=== PATIENT | female | born 1995 | race Caucasian/White ===

== ENCOUNTER 2018-11-02 19:46 | Inpatient (IN) | payer OTHER ==
[~2018-11-02] VITALS: Ht 167.6 cm; Wt 76.9 kg
[2018-11-02] MEDS ORDERED: MAGNESIUM SULF. PMX 20GM/500ML 500 ML IV SCH ×2 (20:06→20:10)
[2018-11-02] MEDS ORDERED: LACTATED RINGERS 1,000 ML IV PRN (20:06)
[2018-11-02] MEDS ORDERED: METOCLOPRAMIDE 5 MG/ML, 2ML IVPush PRN (20:30)
[2018-11-02] MEDS ORDERED: ALUMINUM/MAG/SIMETHICONE 30 ML UDC PO PRN (20:30)
[2018-11-02] MEDS ORDERED: FENTANYL PF 100 MCG/2ML IVPush PRN (20:30)
[2018-11-02] MEDS ORDERED: FENTANYL PF 100 MCG/2ML IV PRN (20:30)
[2018-11-02] MEDS ORDERED: BETAMETHASONE 6 MG/ML, 5ML IM SCH (20:30)
[2018-11-02] MEDS ORDERED: MAGNESIUM SULF. PMX 20GM/500ML 500 ML IV PRN (20:30)
[2018-11-02] MEDS ORDERED: CALCIUM GLUCONATE 4.6 MEQ/10 ML IV PRN (20:30)
[2018-11-02] MEDS ORDERED: CALCIUM CARBONATE 500 MG TAB.CHEW PO PRN (20:30)
[2018-11-02] MEDS ORDERED: SODIUM CITRATE/CITRIC ACID 30 ML UDC PO PRN (20:30)
[2018-11-02 20:57] LABS: BASOPHILS % (AUTO) 0 % (0-1); EOSINOPHILS % (AUTO) 0 % (1-7); LYMPHOCYTES # (AUTO) 0.96 x10^3/uL (1-3.4); LYMPHOCYTES % (AUTO) 8 % (22-44); MD NO; MEAN CORPUSCULAR HEMOGLOBIN 27.5 pg (27.0-34.8); MEAN CORPUSCULAR HGB CONC 32.5 g/dL (32.4-35.8); MEAN CORPUSCULAR VOLUME 84.4 fL (80-100); MEAN PLATELET VOLUME 8.3 fL (7.4-10.4); MONOCYTES # (AUTO) 0.03 x10^3/uL (0.2-0.8); MONOCYTES % (AUTO) 0 % (2-9); NEUTROPHILS # (AUTO) 10.79 x10^3/uL (1.8-6.8); NEUTROPHILS % (AUTO) 92 % (42-75); PLATELET COUNT 298 x10^3/uL (130-400); RED BLOOD COUNT 4.27 x10^6/uL (3.82-5.3); RED CELL DISTRIBUTION WIDTH 14.7 % (9.6-15.2)
[2018-11-02 21:00] VITALS: BP 121/70
[2018-11-02 21:23] LABS: ALANINE AMINOTRANSFERASE 7 U/L (12-78); ALBUMIN 2.7 g/dL (3.4-5.0); ANION GAP 9 mmol/L (5-15); CALCIUM 7.7 mg/dL (8.5-10.1); CHLORIDE 109 mmol/L (98-107)
[2018-11-02] MEDS: PENICILLIN GK 2,500,000 UNITS in DEXTROSE 5% 100 ML IVPB SCH (21:24)
[2018-11-02 21:26] LABS: ALKALINE PHOSPHATASE 113 U/L (45-117); BILIRUBIN,TOTAL 0.5 mg/dL (0.2-1.0); CREATININE 0.55 mg/dL (0.55-1.02); TOTAL PROTEIN 7.2 g/dL (6.4-8.2)
[2018-11-02] MEDS ORDERED: D5%-LACTATED RINGERS 1,000 ML IV SCH (22:01)
[2018-11-02] MEDS ORDERED: ONDANSETRON 2MG/ML, 2ML ONE (22:13)
[2018-11-02] MEDS: ONDANSETRON 2MG/ML, 2ML IVPush PRN (22:16)
[2018-11-03] MEDS: PENICILLIN GK 2,500,000 UNITS in DEXTROSE 5% 100 ML IVPB SCH ×5 (02:00→22:07)
[2018-11-03] MEDS ORDERED: MAGNESIUM SULF. PMX 20GM/500ML 500 ML IV ONE (02:02)
[2018-11-03] MEDS ORDERED: ONDANSETRON 2MG/ML, 2ML ONE ×2 (05:41→13:38)
[2018-11-03] MEDS: ONDANSETRON 2MG/ML, 2ML IVPush PRN ×2 (05:44→13:43)
[2018-11-03] MEDS ORDERED: D5%-LACTATED RINGERS 1,000 ML IV SCH (06:32)
[2018-11-03] MEDS ORDERED: OXYTOCIN 30U/ 0.9% NaCL 500ML 500 ML IV ONE (06:32)
[2018-11-03] MEDS ORDERED: LACTATED RINGERS 1,000 ML IV SCH (06:32)
[2018-11-03] MEDS ORDERED: FENTANYL/BUPIV./NS/PF 250 ML EPIDCONT SCH (06:42)
[2018-11-03] MEDS ORDERED: BETAMETHASONE 6 MG/ML, 5ML IM ONE (15:36)
[2018-11-03] MEDS ORDERED: BETAMETHASONE 6 MG/ML, 5ML IM SCH ×2 (16:30)
[2018-11-03] MEDS ORDERED: MAGNESIUM SULF. PMX 20GM/500ML 500 ML IV SCH ×2 (20:10)
[2018-11-03] MEDS ORDERED: LIDOCAINE 1%, 20ML ONE (20:12)
[2018-11-03] MEDS ORDERED: OXYTOCIN 30U/ 0.9% NaCL 500ML 500 ML ONE (20:13)
[2018-11-03] MEDS ORDERED: MISOPROSTOL 200 MCG TABLET ONE (20:13)
[2018-11-04] MEDS: PENICILLIN GK 2,500,000 UNITS in DEXTROSE 5% 100 ML IVPB SCH ×3 (02:02→10:35)
[2018-11-04] MEDS ORDERED: NEWBORN KIT ONE (04:50)
[2018-11-04] MEDS ORDERED: DOCUSATE 100 MG CAPSULE ONE (08:09)
[2018-11-04] MEDS ORDERED: PRENATAL VIT/IRON/FA 1 EACH TABLET ONE (08:09)
[2018-11-04] MEDS: PRENATAL VIT/IRON/FA 1 EACH TABLET PO SCH (08:19)
[2018-11-04] MEDS: DOCUSATE 100 MG CAPSULE PO SCH (21:00)
[2018-11-05 07:51] VITALS: BP 105/67
[2018-11-05] MEDS ORDERED: PRENATAL VIT/IRON/FA 1 EACH TABLET ONE (09:12)
[2018-11-05] MEDS ORDERED: DOCUSATE 100 MG CAPSULE ONE ×2 (09:12→21:19)
[2018-11-05] MEDS: PRENATAL VIT/IRON/FA 1 EACH TABLET PO SCH (09:21)
[2018-11-05] MEDS: DOCUSATE 100 MG CAPSULE PO SCH (09:21)
[2018-11-05] MEDS: SODIUM CHLORIDE FLUSH 10ML SYR IVF PRN ×2 (12:17→21:00)
[2018-11-05] MEDS ORDERED: DIPH,PERTUSS(ACELL),TET VAC/PF NC IM-VACC ONE (14:29)
[2018-11-06] MEDS ORDERED: DOCUSATE 100 MG CAPSULE ONE ×2 (07:30→20:52)
[2018-11-06] MEDS ORDERED: PRENATAL VIT/IRON/FA 1 EACH TABLET ONE (07:30)
[2018-11-06] MEDS: PRENATAL VIT/IRON/FA 1 EACH TABLET PO SCH (07:36)
[2018-11-06] MEDS: DOCUSATE 100 MG CAPSULE PO SCH ×4 (07:36→21:00)
[2018-11-06] MEDS: SODIUM CHLORIDE FLUSH 10ML SYR IVF PRN ×2 (10:00→19:30)
[2018-11-06] MEDS ORDERED: ONDANSETRON ODT 4 MG ONE (16:14)
[2018-11-06] MEDS: ONDANSETRON ODT 4 MG PO PRN (16:16)
[2018-11-07] MEDS ORDERED: DOCUSATE 100 MG CAPSULE ONE ×2 (08:37→22:25)
[2018-11-07] MEDS ORDERED: PRENATAL VIT/IRON/FA 1 EACH TABLET ONE (08:37)
[2018-11-07] MEDS ORDERED: ONDANSETRON ODT 4 MG ONE ×2 (08:38→22:22)
[2018-11-07] MEDS: ONDANSETRON ODT 4 MG PO PRN ×2 (08:39→22:23)
[2018-11-07] MEDS: DOCUSATE 100 MG CAPSULE PO SCH ×2 (08:39→22:25)
[2018-11-07] MEDS: PRENATAL VIT/IRON/FA 1 EACH TABLET PO SCH (08:39)
[2018-11-07] MEDS: SODIUM CHLORIDE FLUSH 10ML SYR IVF PRN (08:41)
[2018-11-08 06:45] LABS: MICROSCOPIC NOT IND
[2018-11-08 06:51] LABS: CULTURE INDICATED? NO
[2018-11-08 08:37] VITALS: BP 103/68
[2018-11-08] MEDS ORDERED: DOCUSATE 100 MG CAPSULE ONE (08:43)
[2018-11-08] MEDS ORDERED: PRENATAL VIT/IRON/FA 1 EACH TABLET ONE (08:43)
[2018-11-08] MEDS: PRENATAL VIT/IRON/FA 1 EACH TABLET PO SCH (08:45)
[2018-11-08] MEDS: DOCUSATE 100 MG CAPSULE PO SCH (08:45)
[2018-11-08] MEDS: SODIUM CHLORIDE FLUSH 10ML SYR IVF PRN (08:46)
== END 2018-11-08 16:27 | disposition left against medical advice (07) | DRG 831 ==
LOC: LDIP 19:46
PROVIDERS: ADMIT Obstetrics & Gynecology Maternal & Fetal Medicine; ATTEND Obstetrics & Gynecology Maternal & Fetal Medicine
DX: O62.0 Primary inadequate contractions (principal); O60.03 Preterm labor without delivery, third trimester; O99.513 Diseases of the respiratory system complicating pregnancy, third trimester; J45.909 Unspecified asthma, uncomplicated; O21.9 Vomiting of pregnancy, unspecified; Z3A.34 34 weeks gestation of pregnancy
CPT/HCPCS: 36415; 80053; 81003; 83735; 85025; 86850; 86870; 86900; 86922; 86923; G0378; J0702; J2405; J2540; Q0162; J3010; J3475; J7120